=== PATIENT | male | born 1990 ===

== ENCOUNTER 2018-02-28 09:00 | Emergency (ER) | payer OTHER ==
[2018-02-28] MEDS ORDERED: Sodium Chloride 0.9% 1,000 ML IV ONE (09:19)
[2018-02-28 09:22] VITALS: RESP 18; O2SAT 100
--- NOTE | 2018-02-28 09:25 | C.PDOC ---
History Of Present Illness 27 year old male, with no significant past medical history, presents to ED for evaluation of right lower quadrant abdominal pain for the last 2 weeks. Notes taking Advil without relief. He reports being seen by his PMD this week, with normal blood work, urine and ultrasound results. He reports feeling bloated after eating and feels constipated. Last bowel movement was yesterday afternoon. (+) nausea. He denies groin pain, back pain, vomiting, dysuria, hematuria, fever, or chills. Time Seen by Provider: 02/28/18 09:15 Chief Complaint (Nursing): Abdominal Pain History Per: Patient History/Exam Limitations: no limitations Onset/Duration Of Symptoms: Days Current Symptoms Are (Timing): Still Present Location Of Pain/Discomfort: RLQ Radiation Of Pain To:: None Quality Of Discomfort: Burning, "Pain" Associated Symptoms: Nausea, Constipation. denies: Vomiting, Diarrhea, Loss Of Appetite, Back Pain, Chest Pain, Urinary Symptoms Exacerbating Factors: None Alleviating Factors: None. denies: OTC Meds Last Bowel Movement: Yesterday Recent travel outside of the [place]: No Additional History Per: Patient Past Medical History Reviewed: Historical Data, Nursing Documentation, Vital Signs Vital Signs: Last Vital Signs Temp 98.4 F 02/28/18 13:28 Pulse 71 02/28/18 13:28 Resp 18 02/28/18 13:28 BP 113/71 02/28/18 13:28 Pulse Ox 100 02/28/18 13:28 Family History: States: Unknown Family Hx - Social History Hx Alcohol Use: Yes Hx Substance Use: No - Immunization History Hx Tetanus Toxoid Vaccination: Yes Hx Influenza Vaccination: Yes Hx Pneumococcal Vaccination: No Review Of Systems Constitutional: Negative for: Fever, Chills Respiratory: Negative for: Shortness of Breath Gastrointestinal: Positive for: Nausea, Abdominal Pain, Constipation. Negative for: Vomiting, Diarrhea, Melena, Hematochezia Genitourinary: Negative for: Dysuria, Frequency, Incontinence, Hematuria, Penile Discharge, Scrotal Pain, Penile Pain Musculoskeletal: Negative for: Back Pain Physical Exam - Physical Exam Appears: Non-toxic, No Acute Distress (comfortable) Skin: Normal Color, Warm, Dry Head: Atraumatic, Normacephalic Eye(s): bilateral: Normal Inspection Oral Mucosa: Moist Neck: Normal ROM, Supple Cardiovascular: Rhythm Regular, No Murmur Respiratory: Normal Breath Sounds, No Rales, No Rhonchi, No Wheezing Gastrointestinal/Abdominal: Bowel Sounds, Soft, Tenderness (mild RLQ), No Guarding, No Rebound, No Other ((-)McBurney's) Back: Normal Inspection, No CVA Tenderness Extremity: Normal ROM, No Deformity Extremity: Bilateral: Atraumatic Neurological/Psych: Oriented x3, Normal Speech ED Course And Treatment - Laboratory Results Result Diagrams: 02/28/18 09:54 02/28/18 09:54 Lab Interpretation: No Acute Changes - CT Scan/US abd/pelvis Other Rad Studies (CT/US): Read By Radiologist, Radiology Report Reviewed CT/US Interpretation: Creator : Arti Zurita MD. Dictator : Arti Zurita MD. Marketing Operations Associate : Cardiovascular Technologist : Arti Zurita MD. Approver2 : Report Date : 02/28/2018 13:04:03. My Comment : . Date of service: 2017. PROCEDURE: CT Abdomen and Pelvis with contrast. HISTORY: RLQ abd pain. COMPARISON: None. TECHNIQUE: Contrast dose: 100 mL of Visipaque 320. Technique: Axial and reformatted coronal and sagittal CT images of the abdomen and pelvis were obtained after IV contrast administration. Radiation dose: Total exam DLP = 684.21 mGy-cm. This CT exam was performed using one or more of the following dose reduction techniques: Automated exposure control, adjustment of the mA and/or kV according to patient size, and/or use of iterative reconstruction technique. FINDINGS: LOWER THORAX: Unremarkable. LIVER: Unremarkable. No gross lesion or ductal dilatation. GALLBLADDER AND BILE DUCTS: Unremarkable. PANCREAS: Unremarkable. No gross lesion or ductal dilatation. SPLEEN: Unremarkable. ADRENALS: Unremarkable. No mass. KIDNEYS AND URETERS: Unremarkable. No hydronephrosis. No solid mass. VASCULATURE: Unremarkable. No aortic aneurysm. BOWEL: Unremarkable. No obstruction. No gross mural thickening. APPENDIX: Normal appendix. PERITONEUM: Unremarkable. No free fluid. No free air. LYMPH NODES: Unremarkable. No enlarged lymph nodes. BLADDER: Unremarkable. REPRODUCTIVE: Unremarkable. BONES: No acute fracture. OTHER FINDINGS: None. IMPRESSION: No evidence of acute appendicitis. No CT evidence of acute pathology in the abdomen and pelvis. Medical Decision Making Medical Decision Making: Impression: 27 year old male with right lower abdominal pain, nausea, and constipation. Plan: * Blood work * Urinalysis * Abd & Pelvis CT * Toradol, Pepcid, IV fluids Reassess 1100 Labs reviewed. No leukocytosis, bandemia, electrolyte abnormality. Urine clear 1300 CT report read by radiologist, no evidence of acute appendicitis. No CT evidence of acute pathology in the abdomen and pelvis. 1305 Patient reevaluated and is resting comfortably in no acute distress. Patient reports improvement of symptoms. Discussed results with patient, and copy of report was provided. Patient feels comfortable going home and will be discharged. Patient given follow up instructions to see GI and PMD. Instructed to return to ER if symptoms worsen or new symptoms arise. Disposition Counseled Patient/Family Regarding: Studies Performed, Diagnosis, Need For Followup, Rx Given - Disposition Referrals: Jamir Enrique MD [Staff Provider] - Disposition: HOME/ ROUTINE Disposition Time: 13:19 Condition: IMPROVED Additional Instructions: Your labs and CT were normal, no surgical pathology. Copies of labs and CT report provided to you. Rx sent to [facility] Take medications as needed for any pain. Follow up with GI if the symptoms persist/ Prescriptions: Dicyclomine [Bentyl] 10 mg PO QID #20 cap Docusate [Colace] 100 mg PO TID PRN #30 cap PRN Reason: Constipation Instructions: Acute Abdomen (Belly Pain), Adult (DC) Forms: [employer] (Hebrew) - POA Present On Arrival: None - Clinical Impression Clinical Impression: Abdominal colic, RLQ abdominal pain - Scribe Statement Kristofer Flores All medical record entries made by the Scribe were at my direction and personally dictated by me. I have reviewed the chart and agree that the record accurately reflects my personal performance of the history, physical exam, medical decision making, and the department course for this patient. I have also personally directed, reviewed, and agree with the discharge instructions and disposition.
[2018-02-28] MEDS ORDERED: Sodium Chloride 0.9% 1,000 ML ONE (09:42)
[2018-02-28 10:04] LABS: EOS % 0.8 % (0.0-4.0); MEAN CELL VOLUME 85.8 fL (80.0-94.0); MEAN CORPUSCULAR HGB CONC 34.9 g/dL (33.0-37.0); MEAN PLATELET VOLUME 10.1 fL (7.2-11.7); MONO % 9.6 % (0.0-10.0); NEUT % 50.9 % (50.0-75.0); RBC 5.33 Mil/uL (4.40-5.90); RED CELL DISTRIBUTION WIDTH 13.1 % (11.5-14.5); WHITE BLOOD COUNT 4.4 K/uL (4.8-10.8)
[2018-02-28 10:05] LABS: BASO % 0.7 % (0.0-2.0); LYMPH # 1.7 K/uL (1.0-4.3); MONO # 0.4 K/uL (0.0-0.8); NEUT # 2.2 K/uL (1.8-7.0); NRBC % 0.1 % (0.0-2.0)
[2018-02-28 10:09] LABS: SQUAMOUS EPITHIAL < 1 /hpf (0-5); URINE BILIRUBIN NEGATIVE (NEGATIVE); URINE BLOOD 1+ (NEGATIVE); URINE CLARITY Clear (Clear); URINE COLOR Yellow (YELLOW); URINE GLUCOSE (UA) NORMAL (Normal); URINE LEUKOCYTE ESTERASE NEG Leu/uL (Negative); URINE PROTEIN NEGATIVE (NEGATIVE); URINE UROBILINOGEN NORMAL mg/dL (0.2-1.0)
[2018-02-28 10:17] LABS: ALB/GLOB RATIO 1.4 (1.0-2.1); ALBUMIN 4.4 g/dL (3.5-5.0); CALCIUM 9.4 mg/dl (8.6-10.4); GFR AFRICAN-AMERICAN > 60; GFR NON-AFRICAN AMERICAN > 60; LIPASE 76 U/L (23-300)
[2018-02-28 10:56] LABS: ALT/SGPT 48 U/L (21-72); AST/SGOT 35 U/L (17-59); BLOOD UREA NITROGEN 16 mg/dL (9-20)
[2018-02-28] MEDS ORDERED: Iodixanol 320 mg/ml 150 ml Bottle IV ONE (11:34)
--- NOTE | 2018-02-28 13:05 | CT ---
Date of service: 02/28/2018 PROCEDURE: CT Abdomen and Pelvis with contrast HISTORY: RLQ abd pain COMPARISON: None. TECHNIQUE: Contrast dose: 100 mL of Visipaque 320. Technique: Axial and reformatted coronal and sagittal CT images of the abdomen and pelvis were obtained after IV contrast administration. Radiation dose: Total exam DLP = 684.21 mGy-cm. This CT exam was performed using one or more of the following dose reduction techniques: Automated exposure control, adjustment of the mA and/or kV according to patient size, and/or use of iterative reconstruction technique. FINDINGS: LOWER THORAX: Unremarkable. LIVER: Unremarkable. No gross lesion or ductal dilatation. GALLBLADDER AND BILE DUCTS: Unremarkable. PANCREAS: Unremarkable. No gross lesion or ductal dilatation. SPLEEN: Unremarkable. ADRENALS: Unremarkable. No mass. KIDNEYS AND URETERS: Unremarkable. No hydronephrosis. No solid mass. VASCULATURE: Unremarkable. No aortic aneurysm. BOWEL: Unremarkable. No obstruction. No gross mural thickening. APPENDIX: Normal appendix. PERITONEUM: Unremarkable. No free fluid. No free air. LYMPH NODES: Unremarkable. No enlarged lymph nodes. BLADDER: Unremarkable. REPRODUCTIVE: Unremarkable. BONES: No acute fracture. OTHER FINDINGS: None. IMPRESSION: No evidence of acute appendicitis. No CT evidence of acute pathology in the abdomen and pelvis.
[2018-02-28 13:33] VITALS: BP 113/71; PULSE 71; TEMP 98.4
== END 2018-02-28 13:33 | disposition home or self-care (01) ==
LOC: C.ER 09:00
DX: R10.31 Right lower quadrant pain (principal)
CPT/HCPCS: 74177; 80053; 81001; 83690; 85025; 96361; 96374; 96375; 99285; J1885; J7030; Q9967